=== PATIENT | female | born 1935 | race Caucasian/White ===

== ENCOUNTER 2016-03-15 08:41 | Emergency (ER) | payer MEDICARE, MEDICAID ==
--- NOTE | 2016-03-15 09:08 | ER Document Report ---
ED General - General Mode of Arrival: Medic Information source: Emergency Med Personnel, [facility] Records Cannot obtain history due to: Dementia TRAVEL OUTSIDE OF THE [place] IN LAST 30 DAYS: No - HPI Patient complains to provider of: Possible Seizure Onset: Just prior to arrival Onset/Duration: Sudden <CLAUDIO BECK - Last Filed: 03/15/16 09:03> <SANJU LOVE - Last Filed: 03/15/16 11:15> - General Chief Complaint: Other Stated Complaint: ALTERED MENTAL STATUS Notes: Patient is an 80-year-old female sent to the emergency department via EMS from her senior care after she went unresponsive while the nurse was feeding her breakfast. EMS was told that the patient shook her arm and then went unresponsive. Patient is unable to speak, but she has had 2 previous similar incidents according to [facility] records (01/18/2015 and 04/24/2014). Patient is now at her baseline. After adjusting patient's pillow, patient either began to laugh or to cry, but it is difficult to say which. (CLAUDIO BECK) - Related Data Allergies/Adverse Reactions: No Known Allergies Allergy (Verified 03/15/16 08:54) Past Medical History - General Information source: Emergency Med Personnel, Outside Facility Records - Social History Smoking Status: Unknown if Ever Smoked Family History: Reviewed & Not Pertinent, Other - Not obtainable due to patient condition Musculoskeltal Medical History: Reports Hx Arthritis Psychiatric Medical History: Reports: Hx Dementia - Immunizations Hx Diphtheria, Pertussis, Tetanus Vaccination: No <CLAUDIO BECK - Last Filed: 03/15/16 09:03> Review of Systems - Review of Systems -: Yes ROS unobtainable due to patient's medical condition <CLAUDIO BECK - Last Filed: 03/15/16 09:03> <SANJU LOVE - Last Filed: 03/15/16 11:15> - Review of Systems Notes: ROS unobtainable due to patient's altered mental status at baseline. (CLAUDIO BECK) Physical Exam - General General appearance: Alert - Non-verbal, altered mental status. - HEENT Head: Normocephalic, Atraumatic Eyes: Normal Pupils: PERRL Mouth/Lips: Other - Poor dentition - Respiratory Respiratory status: No respiratory distress Chest status: Nontender Breath sounds: Normal Chest palpation: Normal - Cardiovascular Rhythm: Regular Heart sounds: Normal auscultation Murmur: No - Abdominal Inspection: Normal - Back Back: Normal, Nontender - Extremities General upper extremity: Normal inspection. No: Edema General lower extremity: Normal inspection. No: Edema - Neurological Neuro grossly intact: Yes Cognition: Other - Patient severely demented Orientation: Disoriented to person, Disoriented to place, Disoriented to time, Disoriented to events [place] Coma Scale Eye Opening: Spontaneous [place] Coma Scale Verbal: Incomprehensible [place] Coma Scale Motor: Abnormal Flexion [place] Coma Scale Total: 9 - Skin Skin Temperature: Warm Skin Moisture: Dry Skin Color: Normal <CLAUDIO BECK - Last Filed: 03/15/16 09:03> Course - Laboratory Result Diagrams: 03/15/16 09:30 03/15/16 09:30 <SANJU LOVE - Last Filed: 03/15/16 11:15> - Vital Signs Vital signs: Temp Pulse Resp BP Pulse Ox 97.6 F 98 18 138/78 H 96 03/15/16 08:41 03/15/16 08:41 03/15/16 08:45 03/15/16 08:41 03/15/16 08:41 (CLAUDIO BECK) (SANJU LOVE) - Laboratory Laboratory results interpreted by me: 03/15/16 09:30 Carbon Dioxide 31 H Creatinine 0.50 L Glucose 114 H (SANJU LOVE) Discharge <CLAUDIO BECK - Last Filed: 03/15/16 09:03> <SANJU LOVE - Last Filed: 03/15/16 11:15> - Discharge Clinical Impression: Seizure Dementia Qualifiers: Dementia type: Alzheimer's disease Alzheimer's disease onset: late-onset Dementia behavioral disturbance: without behavioral disturbance Qualified Code(s ): G30.1 - Alzheimer's disease with late onset; F02.80 - Dementia in other diseases classified elsewhere without behavioral disturbance Condition: Stable Disposition: HOME, SELF-CARE Additional Instructions: The history suggests the patient had a brief seizure this morning. She has been seen here at least twice with the same history and physical findings. There was not enough urine for the lab to run a urinalysis. The urine was sent for culture and if it comes back positive, the facility will be contacted. Follow-up with your primary care provider to decide if seizure medication would be appropriate. RETURN TO THE EMERGENCY ROOM IF ANY NEW OR WORSENING SYMPTOMS. Referrals: Bc Nguyễn MD, [Primary Care Provider] - Follow up as needed Scribe Attestation: 03/15/16 11:15 I personally performed the services described in the documentation, reviewed and edited the documentation which was dictated to the scribe in my presence, and it accurately records my words and actions. (SANJU LOVE) Scribe Documentation - Scribe Written by April:: Claudio Beck 03/15/2016 0904 acting as scribe for :: Dale <CLAUDIO BECK - Last Filed: 03/15/16 09:03>
[2016-03-15 09:54] LABS: ABSOLUTE BASOPHILS # (AUTO) 0.1 10^3/uL (0.0-0.2); ABSOLUTE EOSINOPHILS # (AUTO) 0.3 10^3/uL (0.0-0.6); ABSOLUTE LYMPHOCYTES (AUTO) 2.1 10^3/uL (0.5-4.7); ABSOLUTE MONOCYTES (AUTO) 0.9 10^3/uL (0.1-1.4); ABSOLUTE NEUT (AUTO) 6.6 10^3/uL (1.7-8.2); BASOPHILS % (AUTO) 1.2 % (0-2); EOSINOPHILS % (AUTO) 3.1 % (0-6); HEMATOCRIT 40.8 % (36.0-47.0); HEMOGLOBIN 13.3 g/dL (12.0-15.5); HGB HCT DIFFERENCE -0.9; LYMPHOCYTES % (AUTO) 20.9 % (13-45); MEAN CORPUSCULAR HEMOGLOBIN 30.7 pg (27.0-33.4); MEAN CORPUSCULAR HGB CONC 32.6 g/dL (32.0-36.0); MEAN CORPUSCULAR VOLUME 94 fl (80-97); MONOCYTES % (AUTO) 9.3 % (3-13); RED BLOOD COUNT 4.33 10^6/uL (3.72-5.28); RED CELL DISTRIBUTION WIDTH 13.3 % (11.5-14.0); SEGMENTED NEUTROPHILS % (AUTO) 65.5 % (42-78); WHITE BLOOD COUNT 10.1 10^3/uL (4.0-10.5)
[2016-03-15 10:01] LABS: ALANINE AMINOTRANSFERASE 18 U/L (9-52); ALBUMIN 4.3 g/dL (3.5-5.0); ALKALINE PHOSPHATASE 118 U/L (38-126); ANION GAP 10 (5-19); ASPARTATE AMINO TRANSFERASE 26 U/L (14-36); BILIRUBIN,TOTAL 0.7 mg/dL (0.2-1.3); BLOOD UREA NITROGEN 10 mg/dL (7-20); CALCIUM 9.7 mg/dL (8.4-10.2); CARBON DIOXIDE 31 mmol/L (22-30); CHLORIDE 103 mmol/L (98-107); GLUCOSE 114 mg/dL (75-110); POTASSIUM 4.4 mmol/L (3.6-5.0); SODIUM 143.5 mmol/L (137-145); TOTAL PROTEIN 7.4 g/dL (6.3-8.2)
[2016-03-15 11:31] VITALS: BP 125/65
== END 2016-03-15 12:20 | disposition home or self-care (01) ==
LOC: ER 08:41
DX: R56.9 Unspecified convulsions (principal); G30.1 Alzheimer's disease with late onset; F02.80 Dementia in other diseases classified elsewhere, unspecified severity, without behavioral disturbance, psychotic disturbance, mood disturbance, and anxiety
CPT/HCPCS: 36415; 80053; 85025; 87086; 99285

== ENCOUNTER 2016-09-16 07:05 | Emergency (ER) | payer OTHER, MEDICAID ==
--- NOTE | 2016-09-16 07:46 | ER Document Report ---
ED General - General Chief Complaint: General Weakness Stated Complaint: POSSIBLE SEIZURE Time Seen by Provider: 09/16/16 07:18 Notes: Patient is a 81 year old female who arrives to the ED via EMS from [facility] with a complaint of a questionable seizure. EMS states that she received report from someone who works at [facility] but is possibly nonmedical who witnessed questionable activity. Per EMS, patient who at baseline is contracted in a position and nonverbal but responsive to sternal rub, name but will not follow instructions. Per review of patient's chart at the facility, has previous evaluations for seizure activity but is not on any medications for seizure disorder, has been treated multiple times for urinary tract infection. Patient is DNR and on hospice. TRAVEL OUTSIDE OF THE [place] IN LAST 30 DAYS: No - Related Data Allergies/Adverse Reactions: No Known Allergies Allergy (Verified 03/15/16 08:54) Past Medical History - Social History Smoking Status: Unknown if Ever Smoked Family History: Reviewed & Not Pertinent, Other - Not obtainable due to patient condition Musculoskeltal Medical History: Reports Hx Arthritis Psychiatric Medical History: Reports: Hx Dementia - Immunizations Hx Diphtheria, Pertussis, Tetanus Vaccination: No Review of Systems - Review of Systems -: Yes ROS unobtainable due to patient's medical condition Physical Exam - Vital signs Vitals: Temp Resp BP 98.1 F 18 121/83 09/16/16 07:22 09/16/16 07:22 09/16/16 07:22 - General General appearance: Appears well, Alert - when stimulated In distress: None - HEENT Head: Normocephalic, Atraumatic. No: Abrasions, Gomez's sign, Ecchymosis, Open wounds, [place]'s eyes, Tenderness Eyes: Normal Conjunctiva: Normal. No: Purulent discharge Extraocular movements intact: Yes Eyelashes: Normal Pupils: PERRL Ears: Normal External canal: Normal Tympanic membrane: Normal Sinus: Normal Nasal: Normal Mouth/Lips: Caries, Dental fracture Mucous membranes: Normal Pharynx: Normal Neck: Normal - Respiratory Respiratory status: No respiratory distress Chest status: Nontender Breath sounds: Normal Chest palpation: Normal - Cardiovascular Rhythm: Regular Heart sounds: Normal auscultation, S1 appreciated, S2 appreciated Gallop: None auscultated. No: S3 gallop, S4 gallop Pulses: Normal: Radial, Dorsalis pedis Normal capillary refill: Yes - Abdominal Inspection: Normal Distension: No distension Bowel sounds: Normal Tenderness: Nontender Organomegaly: No organomegaly - Back Back: Normal, Nontender. No: Deformity/step-off, CVA tenderness, Vertebra tenderness, Scars, Scoliosis, Wounds - Extremities General upper extremity: Normal inspection, Normal color, Normal ROM, Normal temperature, Other - contracted in position General lower extremity: Normal inspection, Normal color, Normal ROM, Normal temperature, Other - contracted in position - Neurological Neuro grossly intact: Yes Cognition: Other - demented Orientation: Disoriented to person, Disoriented to place, Disoriented to time, Disoriented to events [place] Coma Scale Eye Opening: Spontaneous [place] Coma Scale Verbal: Incomprehensible [place] Coma Scale Motor: Localizes to Pain [place] Coma Scale Total: 11 Cerebellar coordination: Other - abnormal flexion - Skin Skin Temperature: Warm Skin Moisture: Dry Skin Color: Normal Skin Turgor: Elastic Course - Re-evaluation Re-evalutation: 09/16/16 10:14 Patient is an 81-year-old female who is hemodynamically stable, no acute distress and afebrile. Patient without any witnessed seizure activity in the emergency department. She is functioning at her normal mental status. Urinalysis reveals evidence of pyelonephritis with white blood cell clumps. Mild elevation in white blood cells but no evidence of left shift. No evidence of associated renal injury. Patient will be discharged home on p.o. course of Bactrim for pyelonephritis. Can follow-up with primary care. - Vital Signs Vital signs: Temp Pulse Resp BP Pulse Ox 98.6 F 18 105/82 96 09/16/16 10:37 09/16/16 07:22 09/16/16 10:37 09/16/16 10:37 - Laboratory Result Diagrams: 09/16/16 09:40 09/16/16 09:40 Laboratory results interpreted by me: 09/16/16 09/16/16 09/16/16 08:30 09:40 09:40 WBC 12.0 H Absolute Neutrophils 9.1 H Alkaline Phosphatase 130 H Urine Blood SMALL H Ur Leukocyte Esterase MODERATE H Discharge - Discharge Clinical Impression: Pyelonephritis Condition: Good Disposition: HOME-ASSISTED LIVING Additional Instructions: PYELONEPHRITIS: Your evaluation shows evidence of pyelonephritis. This is an infection in the kidney. Typical symptoms are fever, pain in the flank, pain on urination, and frequent urination. Many cases of pyelonephritis can be treated at home. Hospital care may be necessary for patients who are very ill, or elderly or . Pyelonephritis is treated with antibiotics. Be sure to take all the medication as prescribed. Drink plenty of liquids (about three quarts per day) . You may take acetaminophen for fever. You should feel significantly improved within two days. You should have a recheck of your urine in about one week to insure that the infection is gone. Return for a re-examination if your symptoms worsen in any way -- such as high fever, shaking chills, severe weakness or dizziness, severe pain, or inability to pass your urine. ANTIBIOTIC THERAPY: You have been given an antibiotic prescription. It's important that you take all the medication, unless instructed otherwise by your physician. Failure to complete the entire course can result in relapse of your condition. Common side effects of antibiotics include nausea, intestinal cramping, or diarrhea. Women may develop vaginal yeast infections, and babies can get yeast (thrush) in the mouth following the use of antibiotics. Contact your physician if you develop significant side effects from this medication. Allergy to this antibiotic can result in hives, wheezing, faintness, or itching. If symptoms of allergy occur, stop the medication and call the doctor. TRIMETHOPRIM-SULFA: You have been given a prescription for trimethoprim-sulfa (TMS, Septra, Bactrim). This is a combination antibiotic of the sulfa class, often used for urinary tract infections, middle ear infections, bronchitis, shigella intestinal infection, and Pneumocystis pneumonia. TMS is usually well-tolerated. Occasional side effects include nausea and decreased appetite. Septra is not recommended for infants less than two months of age. Do not take this medication if you have experienced severe side effects or allergy to sulfa medicine. You should stop this medicine at once and contact your physician if you develop any rash, joint pain, shortness of breath, bruising, or jaundice ( yellow color in the skin), or if you develop any other new or unusual symptoms. USE OF ACETAMINOPHEN (Tylenol): Acetaminophen may be taken for pain relief or fever control. It's much safer than aspirin, offering a wider range of "safe" dosages. It is safe during . Some brand names are Tylenol, Panadol, Datril, Anacin 3, Tempra, and Liquiprin. Acetaminophen can be repeated every four hours. The following are maximum recommended dosages: >89 pounds or adults 650 mg to 900 mg Acetaminophen can be repeated every four hours. Maximum dose not to exceed 4000 mg a day. FOLLOW-UP CARE: If you have been referred to a physician for follow-up care, call the physician s office for an appointment as you were instructed or within the next two days. If you experience worsening or a significant change in your symptoms, notify the physician immediately or return to the Emergency Department at any time for re-evaluation. Prescriptions: Sulfamethoxazole/Trimethoprim [Bactrim Ds Tablet] 1 each PO BID 14 Days Forms: Elevated Blood Pressure Referrals: BRUNA FOREMAN MD [Primary Care Provider] - Follow up in 3-5 days
[2016-09-16 09:02] LABS: APPEARANCE,URINE CLOUDY; BILIRUBIN,URINE NEGATIVE (NEGATIVE); GLUCOSE, URINE NEGATIVE (NEGATIVE); KETONES,URINE NEGATIVE (NEGATIVE); LEUKOCYTE ESTERASE,URINE MODERATE (NEGATIVE); NITRITE,URINE NEGATIVE (NEGATIVE); PROTEIN,URINE NEGATIVE (NEGATIVE); URINE SPECIFIC GRAVITY 1.015; UROBILINOGEN,URINE NEGATIVE mg/dL (<2.0)
[2016-09-16 09:53] LABS: ABSOLUTE BASOPHILS # (AUTO) 0.1 10^3/uL (0.0-0.2); ABSOLUTE EOSINOPHILS # (AUTO) 0.2 10^3/uL (0.0-0.6); ABSOLUTE LYMPHOCYTES (AUTO) 1.8 10^3/uL (0.5-4.7); ABSOLUTE MONOCYTES (AUTO) 0.8 10^3/uL (0.1-1.4); ABSOLUTE NEUT (AUTO) 9.1 10^3/uL (1.7-8.2); BASOPHILS % (AUTO) 0.5 % (0-2); EOSINOPHILS % (AUTO) 1.3 % (0-6); HEMATOCRIT 39.8 % (36.0-47.0); HEMOGLOBIN 13.3 g/dL (12.0-15.5); HGB HCT DIFFERENCE 0.1; MEAN CORPUSCULAR HGB CONC 33.4 g/dL (32.0-36.0); MEAN CORPUSCULAR VOLUME 93 fl (80-97); MONOCYTES % (AUTO) 6.8 % (3-13); RED BLOOD COUNT 4.28 10^6/uL (3.72-5.28); RED CELL DISTRIBUTION WIDTH 13.5 % (11.5-14.0); SEGMENTED NEUTROPHILS % (AUTO) 76.4 % (42-78)
[2016-09-16 10:10] LABS: ALANINE AMINOTRANSFERASE 24 U/L (9-52); ALKALINE PHOSPHATASE 130 U/L (38-126); ANION GAP 8 (5-19); ASPARTATE AMINO TRANSFERASE 21 U/L (14-36); BILIRUBIN,DIRECT 0.3 mg/dL (0.0-0.4); BILIRUBIN,TOTAL 0.7 mg/dL (0.2-1.3); BLOOD UREA NITROGEN 16 mg/dL (7-20); CALCIUM 9.5 mg/dL (8.4-10.2); CARBON DIOXIDE 29 mmol/L (22-30); CHLORIDE 104 mmol/L (98-107); CREATININE RESULT 0.65 mg/dL (0.52-1.25); GLUCOSE 105 mg/dL (75-110); POTASSIUM 4.4 mmol/L (3.6-5.0); SODIUM 141.4 mmol/L (137-145); TOTAL PROTEIN 7.6 g/dL (6.3-8.2)
[2016-09-16] MEDS ORDERED: SULFAMETHOXAZOLE/TRIMETHOPRIM 800-160 MG TABLET PO ONE (10:14)
[2016-09-16 10:41] VITALS: BP 105/82
== END 2016-09-16 10:47 | disposition home health service (06) ==
LOC: ER 07:05
DX: N12 Tubulo-interstitial nephritis, not specified as acute or chronic (principal); K02.9 Dental caries, unspecified; F03.90 Unspecified dementia, unspecified severity, without behavioral disturbance, psychotic disturbance, mood disturbance, and anxiety; Z66 Do not resuscitate
CPT/HCPCS: 99285; 51701; 36415; 87086; 85025; 80053; 81001; A9270